=== PATIENT | male | born 1990 | race African-American/Black ===

== ENCOUNTER → 2024-10-07 09:54 | Outpatient (REF) | payer OTHER, SELFPAY ==
[2024-10-07 15:06] LABS: Varicella Zoster IgG (VZV) Positive
== END ==
LOC: OHS 09:54
PROVIDERS: ATTENDING PHYSICIAN Nurse Practitioner Family
DX: Z23 Encounter for immunization (principal)
CPT/HCPCS: 36415; 86480; 86706; 86787